=== PATIENT | female | born 1940 | race Two or more races ===

== ENCOUNTER 2016-10-14 18:50 | Inpatient (IN) | payer MEDICARE, MEDICAID ==
[~2016-10-14] VITALS: Ht 165.1 cm; Wt 65.3 kg
[~2016-10-14 18:50] MED LIST: ALBU0.084 NEB; AMIO200T33 PO; ASPI81TA13; Atorvastatin Calcium PO; BENA40TA2 PO; CLO3P; CLOP75TA28 PO; DILT180C88 PO; ERGO1CAP6 PO; FERR324T11; FOLI1TAB6 PO; GABA-494; INSRTEST IV; INSU70IN9 SC; IPRAAER6; LEVO100T8; LORA-622 PO; METH2.5T3 PO; OMEG1CAP10 PO; OMEP20TA69; PRE5T PO; SERT-274 PO; TRAM100T37 PO; VERA1TAB9 PO
[2016-10-14] MEDS ORDERED: ACETAMINOPHEN 500 MG TAB PO ONE (19:30)
[2016-10-14] MEDS ORDERED: IBUPROFEN 600 MG TAB PO ONE (19:30)
[2016-10-14 19:59] LABS: Basophils # (auto) 0 uL; Basophils % (auto) 0.1 % (0.0-2.0); DEFINITIVE VIEW TRANSMISSION; Eosinophils # (auto) 0.1 uL; Eosinophils % (auto) 1.7 % (0.0-7.0); Hematocrit 23.2 % (36.0-46.0); Hemoglobin 7.6 g/dL (12.2-16.2); Lymphocytes # (auto) 0.9 uL; Lymphocytes % (auto) 15.8 % (10.0-50.0); Mean Corpuscular Hemoglobin 24.6 pg (28.0-32.0); Mean Corpuscular Hgb Conc. 32.6 g/dL (32.0-36.0); Mean Corpuscular Volume 75.7 fL (80.0-100.0); Mean Platelet Volume 7.9 fL (7.4-10.4); Monocytes # (auto) 0.3 uL; Neutrophils # (auto) 4.2 uL; Neutrophils % (auto) 77.4 % (37.0-80.0); Platelet Count (auto) 278 10^3/uL (140-450); Red Cell Distribution Width 19.2 % (11.6-16.0); White Blood Cell 5.5 10^3/uL (4.4-10.8)
[2016-10-14] MEDS ORDERED: SODIUM CHLORIDE 0.9% 1,000 ML IVB ONE (20:02)
[2016-10-14 20:15] LABS: INR 1.01 (0.9-1.15); Partial Thromboplastin Time 33.1 sec (22.64-33.71); Prothrombin Time 10.4 sec (9.37-12.3)
[2016-10-14] MEDS ORDERED: cefTRIAXone 1GM/50ML D5W 50 ML IV ONE (20:15)
[2016-10-14 20:26] LABS: Albumin 1.7 g/dL (3.4-5.0); BUN/Creatinine Ratio 18.8; Calcium 7.5 mg/dL (8.5-10.1); Magnesium 1.8 mg/dL (1.6-2.6); Potassium 4.5 mmol/L (3.5-5.1)
[2016-10-14 20:30] LABS: Anisocytosis Moderate; Hypochromia Moderate; Ovalocytes FEW; Platelet Estimate Adequate
[2016-10-14 20:31] LABS: Bilirubin, Total 0.3 mg/dL (0.2-1.0); Total Protein 5.1 g/dL (6.4-8.2)
[2016-10-14 20:37] LABS: B-Type Natriuretic Peptide 374.16 pg/mL (0-100); Temperature: 21.9 C (20.0-25.0)
[2016-10-14 21:23] LABS: Urine Bilirubin Negative (Negative); Urine Blood Negative /uL (Negative); Urine Color Yellow (Yellow); Urine Glucose Normal (Normal); Urine Ketone Negative (Negative); Urine Mucus FEW (None Seen); Urine Nitrite Negative (Negative); Urine RBC 2 /hpf (0 - 4); Urine Squamous Epithelial Cell FEW /hpf (<5); Urine Urobilinogen Normal (Negative); Urine pH 5.5 (5.0-8.0)
[2016-10-14] MEDS ORDERED: SODIUM CHLORIDE 0.9% 1,000 ML IV ONE (21:45)
[2016-10-14 22:50] VITALS: BP 116/47
[2016-10-14 23:08] VITALS: BP 110/53
[2016-10-14 23:35] VITALS: BP 113/48
[2016-10-15] VITALS (11 sets, daily range): BP systolic 97–171; BP diastolic 48–83
[2016-10-15] MEDS ORDERED: MORPHINE SULF INJ 2 MG/ML SYRINGE 1ML IV PRN (01:30)
[2016-10-15] MEDS ORDERED: LEVOFLOXACIN 750MG 150 ML IV ONE (01:30)
[2016-10-15] MEDS ORDERED: NITROGLYCERIN 0.4 MG SL TAB SL PRN (01:30)
[2016-10-15] MEDS ORDERED: ONDANSETRON HCL 4 MG/2 ML VIAL IV PRN (01:30)
[2016-10-15] MEDS ORDERED: HYDROcodone-ACET 5/325MG TAB PO PRN (01:30)
[2016-10-15] MEDS ORDERED: DEXTROSE (50%) 50ML SYRG IV PRN (01:30)
[2016-10-15] MEDS ORDERED: ALBUTEROL SULF 2.5 MG/0.5ML(0.5%) NEB SOLN NEB PRN (01:30)
[2016-10-15] MEDS ORDERED: ACETAMINOPHEN 325 MG TAB PO PRN (01:30)
[2016-10-15] MEDS: ACCU-CHEK COMFORT CURVE STRIP VI SCH ×3 (06:36→18:19)
[2016-10-15] MEDS: InsuLIN REG 1unit/0.01ml Soln (100units/ml) SC SCH ×3 (06:36→18:00)
[2016-10-15 08:02] LABS: Basophils # (auto) 0 uL; Basophils % (auto) 0.3 % (0.0-2.0); DEFINITIVE VIEW TRANSMISSION; Eosinophils # (auto) 0.1 uL; Eosinophils % (auto) 3.1 % (0.0-7.0); Hematocrit 32.1 % (36.0-46.0); Hemoglobin 10.4 g/dL (12.2-16.2); Hemoglobin 10.5 g/dL (12.2-16.2); Lymphocytes # (auto) 0.8 uL; Lymphocytes % (auto) 17.4 % (10.0-50.0); Mean Corpuscular Hemoglobin 25.1 pg (28.0-32.0); Mean Corpuscular Hgb Conc. 32.5 g/dL (32.0-36.0); Mean Corpuscular Volume 77.4 fL (80.0-100.0); Mean Platelet Volume 7.6 fL (7.4-10.4); Monocytes # (auto) 0.3 uL; Monocytes % (auto) 6.1 % (0.0-12.0); Neutrophils # (auto) 3.5 uL; Neutrophils % (auto) 73.1 % (37.0-80.0); Platelet Count (auto) 268 10^3/uL (140-450); Red Cell Distribution Width 17.9 % (11.6-16.0); White Blood Cell 4.7 10^3/uL (4.4-10.8)
[2016-10-15] MEDS: FERROUS SULFATE 325 MG TAB PO SCH ×2 (08:20→18:27)
[2016-10-15] MEDS: LEVOTHYROXINE SODIUM 100 MCG TAB PO SCH (08:20)
[2016-10-15 08:30] LABS: Albumin 1.6 g/dL (3.4-5.0); BUN/Creatinine Ratio 15.6; Bilirubin, Total 0.4 mg/dL (0.2-1.0); Calcium 7.6 mg/dL (8.5-10.1); Potassium 4.2 mmol/L (3.5-5.1)
[2016-10-15] MEDS ORDERED: ENOXAPARIN SOD 30 MG/0.3 ML SYRINGE SC SCH (10:00)
[2016-10-15] MEDS: AMIODARONE HCL 200 MG TAB PO SCH ×2 (10:00→21:49)
[2016-10-15] MEDS: DILTIAZEM HCL 180MG ER CAP PO SCH (10:00)
[2016-10-15] MEDS: ENOXAPARIN SOD 40 MG/0.4 ML SYRINGE SC SCH (10:32)
[2016-10-15] MEDS: CLOPIDOGREL BISULFATE 75 MG TAB PO SCH (10:33)
[2016-10-15] MEDS: FAMOTIDINE 20 MG TAB PO SCH ×2 (10:33→21:49)
[2016-10-15] MEDS: BENAZEPRIL HCL 10 MG TAB PO SCH (10:34)
[2016-10-15] MEDS ORDERED: cloNIDine HCL 0.1 MG TAB PO PRN (18:30)
[2016-10-15] MEDS: ATORVASTATIN 20 MG TAB PO SCH (21:49)
[2016-10-15] MEDS ORDERED: LEVOFLOXACIN 500MG 100 ML IV SCH (22:00)
[2016-10-16] MEDS: ACCU-CHEK COMFORT CURVE STRIP VI SCH ×4 (00:05→18:06)
[2016-10-16] MEDS: TEMAZEPAM 15 MG CAP PO PRN ×2 (01:23→21:53)
[2016-10-16] MEDS ORDERED: LEVOFLOXACIN 750MG 150 ML IV SCH (04:00)
[2016-10-16 05:00] VITALS: BP 158/67
[2016-10-16] MEDS: InsuLIN REG 1unit/0.01ml Soln (100units/ml) SC SCH ×4 (05:50→18:00)
[2016-10-16 06:20] LABS: Basophils # (auto) 0 uL; Basophils % (auto) 0.4 % (0.0-2.0); DEFINITIVE VIEW TRANSMISSION; Eosinophils # (auto) 0.1 uL; Eosinophils % (auto) 1.5 % (0.0-7.0); Hematocrit 32.2 % (36.0-46.0); Hemoglobin 10.4 g/dL (12.2-16.2); Lymphocytes # (auto) 0.8 uL; Lymphocytes % (auto) 16.5 % (10.0-50.0); Mean Corpuscular Hemoglobin 24.9 pg (28.0-32.0); Mean Corpuscular Hgb Conc. 32.3 g/dL (32.0-36.0); Mean Corpuscular Volume 76.9 fL (80.0-100.0); Mean Platelet Volume 7.8 fL (7.4-10.4); Monocytes # (auto) 0.3 uL; Monocytes % (auto) 6.8 % (0.0-12.0); Neutrophils # (auto) 3.8 uL; Neutrophils % (auto) 74.8 % (37.0-80.0); Platelet Count (auto) 277 10^3/uL (140-450); Red Cell Distribution Width 18.7 % (11.6-16.0)
[2016-10-16] MEDS: LEVOTHYROXINE SODIUM 100 MCG TAB PO SCH (06:34)
[2016-10-16 06:49] LABS: Albumin 1.7 g/dL (3.4-5.0); BUN/Creatinine Ratio 10.5; Bilirubin, Direct 0.2 mg/dL (0-0.2); Bilirubin, Total 0.4 mg/dL (0.2-1.0); Calcium 8.3 mg/dL (8.5-10.1); Potassium 3.6 mmol/L (3.5-5.1); Total Protein 5.1 g/dL (6.4-8.2)
[2016-10-16 09:00] VITALS: BP 142/94
[2016-10-16] MEDS: ENOXAPARIN SOD 40 MG/0.4 ML SYRINGE SC SCH (09:53)
[2016-10-16] MEDS: CLOPIDOGREL BISULFATE 75 MG TAB PO SCH (09:53)
[2016-10-16] MEDS: AMIODARONE HCL 200 MG TAB PO SCH ×2 (09:54→21:53)
[2016-10-16] MEDS: FAMOTIDINE 20 MG TAB PO SCH ×2 (09:54→21:53)
[2016-10-16] MEDS: BENAZEPRIL HCL 10 MG TAB PO SCH (09:55)
[2016-10-16] MEDS: DILTIAZEM HCL 180MG ER CAP PO SCH (09:55)
[2016-10-16] MEDS: FERROUS SULFATE 325 MG TAB PO SCH ×2 (10:08→18:06)
[2016-10-16] MEDS: ERTAPENEM 1GM IN NS 50 ML IV SCH (11:54)
[2016-10-16 13:00] VITALS: BP 149/74
[2016-10-16 17:00] VITALS: BP 169/53
[2016-10-16] MEDS: ATORVASTATIN 20 MG TAB PO SCH (21:53)
[2016-10-16 22:00] VITALS: BP 150/65
[2016-10-17 05:00] VITALS: BP 146/57
[2016-10-17] MEDS: InsuLIN REG 1unit/0.01ml Soln (100units/ml) SC SCH ×4 (06:00→18:00)
[2016-10-17] MEDS: ACCU-CHEK COMFORT CURVE STRIP VI SCH ×4 (06:11→18:03)
[2016-10-17] MEDS: LEVOTHYROXINE SODIUM 100 MCG TAB PO SCH (06:38)
[2016-10-17] MEDS: FERROUS SULFATE 325 MG TAB PO SCH ×2 (08:52→18:33)
[2016-10-17 09:00] VITALS: BP 145/68
[2016-10-17] MEDS: ERTAPENEM 1GM IN NS 50 ML IV SCH (09:35)
[2016-10-17] MEDS: ENOXAPARIN SOD 40 MG/0.4 ML SYRINGE SC SCH (09:35)
[2016-10-17] MEDS: CLOPIDOGREL BISULFATE 75 MG TAB PO SCH (09:36)
[2016-10-17] MEDS: DILTIAZEM HCL 180MG ER CAP PO SCH (09:36)
[2016-10-17] MEDS: FAMOTIDINE 20 MG TAB PO SCH ×2 (09:37→21:47)
[2016-10-17] MEDS: BENAZEPRIL HCL 10 MG TAB PO SCH (09:37)
[2016-10-17] MEDS: AMIODARONE HCL 200 MG TAB PO SCH ×2 (09:37→21:47)
[2016-10-17 13:00] VITALS: BP 142/54
[2016-10-17] MEDS ORDERED: LIDOCAINE 1% HCL (LOCAL ANESTH.) INJ 20ML MDV ID ONE (16:00)
[2016-10-17 17:00] VITALS: BP 142/68
[2016-10-17] MEDS: PRO-STAT 64 30ML PO SCH (18:03)
[2016-10-17] MEDS: ATORVASTATIN 20 MG TAB PO SCH (21:47)
[2016-10-17] MEDS: SODIUM CHLOR 0.9% PF (SALINE LOCK) 10ML VIAL IV SCH (21:47)
[2016-10-17 22:00] VITALS: BP 165/64
[2016-10-18] MEDS: ACCU-CHEK COMFORT CURVE STRIP VI SCH ×3 (00:15→11:46)
[2016-10-18] MEDS: InsuLIN REG 1unit/0.01ml Soln (100units/ml) SC SCH ×3 (00:18→12:12)
[2016-10-18 04:49] VITALS: BP 145/63
[2016-10-18] MEDS: LEVOTHYROXINE SODIUM 100 MCG TAB PO SCH (06:16)
[2016-10-18 07:25] LABS: Basophils # (auto) 0 uL; Basophils % (auto) 0.5 % (0.0-2.0); DEFINITIVE VIEW TRANSMISSION; Eosinophils # (auto) 0.1 uL; Eosinophils % (auto) 2.1 % (0.0-7.0); Hematocrit 33.6 % (36.0-46.0); Hemoglobin 10.9 g/dL (12.2-16.2); Lymphocytes # (auto) 1.2 uL; Lymphocytes % (auto) 21.3 % (10.0-50.0); Mean Corpuscular Hgb Conc. 32.3 g/dL (32.0-36.0); Mean Corpuscular Volume 77.5 fL (80.0-100.0); Mean Platelet Volume 7.5 fL (7.4-10.4); Monocytes # (auto) 0.4 uL; Monocytes % (auto) 7.6 % (0.0-12.0); Neutrophils # (auto) 3.8 uL; Neutrophils % (auto) 68.5 % (37.0-80.0); Platelet Count (auto) 325 10^3/uL (140-450); Red Cell Distribution Width 18.5 % (11.6-16.0); White Blood Cell 5.5 10^3/uL (4.4-10.8)
[2016-10-18 07:34] LABS: Albumin 1.7 g/dL (3.4-5.0); BUN/Creatinine Ratio 11.1; Calcium 7.9 mg/dL (8.5-10.1); Potassium 3.6 mmol/L (3.5-5.1)
[2016-10-18 07:37] LABS: Bilirubin, Total 0.3 mg/dL (0.2-1.0); Total Protein 5.3 g/dL (6.4-8.2)
[2016-10-18] MEDS: FERROUS SULFATE 325 MG TAB PO SCH (08:00)
[2016-10-18] MEDS: PRO-STAT 64 30ML PO SCH (08:48)
[2016-10-18 09:00] VITALS: BP 156/67
[2016-10-18] MEDS ORDERED: ERTA1INJ2 IJ (10:00)
[2016-10-18] MEDS: DILTIAZEM HCL 180MG ER CAP PO SCH (10:01)
[2016-10-18] MEDS: FAMOTIDINE 20 MG TAB PO SCH (10:01)
[2016-10-18] MEDS: AMIODARONE HCL 200 MG TAB PO SCH (10:02)
[2016-10-18] MEDS: CLOPIDOGREL BISULFATE 75 MG TAB PO SCH (10:02)
[2016-10-18] MEDS: ENOXAPARIN SOD 40 MG/0.4 ML SYRINGE SC SCH (10:02)
[2016-10-18] MEDS: ERTAPENEM 1GM IN NS 50 ML IV SCH (10:03)
[2016-10-18] MEDS: BENAZEPRIL HCL 10 MG TAB PO SCH (10:03)
[2016-10-18] MEDS: SODIUM CHLOR 0.9% PF (SALINE LOCK) 10ML VIAL IV SCH (10:04)
[2016-10-18 13:00] VITALS: BP 149/87
[2016-10-18 14:42] LABS: Microcytosis Slight
[2016-10-18 14:45] LABS: Hypochromia Slight; Ovalocytes FEW
[2016-10-18 14:46] LABS: Tear Drop Cells FEW
[2016-10-18 14:47] LABS: Platelet Estimate Adequate
== END 2016-10-18 16:00 | disposition home health service (06) | DRG 720 ==
LOC: EDBD 18:50 → ER 18:56 → TELE 18:57 → TELE-WESTW 10-15 08:31
PROVIDERS: ADMIT Internal Medicine; ATTEND Internal Medicine
PROC: 30233N1 Transfusion of Nonautologous Red Blood Cells into Peripheral Vein, Percutaneous Approach (ICD-10-PCS; principal; 2016-10-14)
PROC: 02HV33Z Insertion of Infusion Device into Superior Vena Cava, Percutaneous Approach (ICD-10-PCS; 2016-10-17)
DX: A41.9 Sepsis, unspecified organism (principal); E43 Unspecified severe protein-calorie malnutrition; I50.43 Acute on chronic combined systolic (congestive) and diastolic (congestive) heart failure; G92 Toxic encephalopathy; L89.153 Pressure ulcer of sacral region, stage 3; I69.351 Hemiplegia and hemiparesis following cerebral infarction affecting right dominant side; I48.2 Chronic atrial fibrillation; L89.513 Pressure ulcer of right ankle, stage 3; I11.0 Hypertensive heart disease with heart failure; D64.9 Anemia, unspecified; E11.9 Type 2 diabetes mellitus without complications; N39.0 Urinary tract infection, site not specified; D53.0 Protein deficiency anemia; F32.9 Major depressive disorder, single episode, unspecified; R65.20 Severe sepsis without septic shock; E78.5 Hyperlipidemia, unspecified; E03.9 Hypothyroidism, unspecified; J44.9 Chronic obstructive pulmonary disease, unspecified; K21.9 Gastro-esophageal reflux disease without esophagitis; M62.50 Muscle wasting and atrophy, not elsewhere classified, unspecified site; B96.89 Other specified bacterial agents as the cause of diseases classified elsewhere; M19.90 Unspecified osteoarthritis, unspecified site; Z74.01 Bed confinement status; Z90.49 Acquired absence of other specified parts of digestive tract; Z79.4 Long term (current) use of insulin; Z80.1 Family history of malignant neoplasm of trachea, bronchus and lung; Z82.49 Family history of ischemic heart disease and other diseases of the circulatory system; Z83.3 Family history of diabetes mellitus; Z79.899 Other long term (current) drug therapy; Z79.82 Long term (current) use of aspirin
CPT/HCPCS: 36415; 36430; 36569; 51702; 71010; 76700; 80053; 81001; 82248; 82962; 83605; 83735; 83880; 84443; 84484; 85014; 85018; 85025; 85610; 85730; 86850; 86900; 86901; 86920; 87040; 87081; 87086; 87088; 87186; 93005; 94640; 94761; 96361; 96365; 96367; 97001; J0696; J1335; J1815; J1956